=== PATIENT | male | born 1975 ===

== ENCOUNTER 2020-04-30 17:30 | Outpatient (CLI) | payer SELFPAY ==
[2020-05-01 08:35] LABS: Basophils % 0.5 %; Eosinophils # 0.1 10^3/uL (0.0-0.8); Eosinophils % 1.5 %; Hematocrit 45.8 % (42.0-52.0); Hemoglobin 15.5 g/dL (11.7-16.6); Lymphocytes # 2.5 10^3/uL (0.8-4.8); Lymphocytes % 37.2 %; Mean Corpuscular HGB Conc 33.8 g/dL (30.0-36.0); Mean Corpuscular Hemoglobin 28.3 pg (28.0-34.0); Mean Corpuscular Volume 83.6 fL (80-94); Mean Platelet Volume 10.1 fL (7.4-10.4); Monocytes # 0.4 10^3/uL (0.2-0.9); Monocytes % 5.6 %; Neutrophils # 3.65 10^3/uL (1.8-7.7); Neutrophils % 54.9 %; Nucleated Red Blood Cells % 0 %; Platelet Count 185 10^3/cmm (130-400); Red Blood Count 5.48 10^6/uL (4.1-5.3); Red Cell Distribution Width 12.8 % (12.1-15.1); White Blood Count 6.6 10^3/uL (4.0-10.0)
[2020-05-01 09:06] LABS: 25 Hydroxy Vitamin D 11 ng/mL (30-100); Prostate Specific Antigen Scr 0.51 ng/mL (0-4); Thyroid Stimulating Hormone 2.67 uIU/mL (0.27-4.20)
[2020-05-01 09:17] LABS: Alanine Aminotransferase 35 U/L (0-41); Albumin Level 4.5 g/dL (3.5-5.2); Alkaline Phosphatase 90 IU/L (40-130); Anion Gap 15.1 (5-19); Aspartate Amino Transferase 18 U/L (0-40); Blood Urea Nitrogen 13 mg/dL (6-20); Calcium 9.2 mg/dL (8.5-10.5); Carbon Dioxide 28 mmol/L (22-29); Chloride 105 mmol/L (98-107); Chol HDL Ratio 4.23 mg/dL (1.0-5.00); Cholesterol 186 mg/dL (0-200); Globulin 2.7 g/dL (1.3-4.6); Glomerular Filtration Rate 105.5 mL/min (90-130); Glucose 103 mg/dL (65-115); HDL Cholesterol 44 mg/dL (60-100); LDL Cholesterol Calculated 117 mg/dL (50-129); LDL HDL Ratio 2.66 RATIO (0.00-3.22); Osmolality Calculated 298 mOsm/kg (285-295); Potassium 4.1 mmol/L (3.5-5.1); Sodium 144 mmol/L (136-145); Total Bilirubin 0.7 mg/dL (0.15-1.2); Total Protein 7.2 g/dL (6.6-8.7); Triglycerides 127 mg/dL (0-150)
[2020-05-01 09:21] LABS: HF Add Manual Diff No
[2020-05-01 09:27] LABS: Estmated Average Glucose 108; Hemoglobin A1C 5.4 % (4.0-6.0)
== END 2020-04-30 17:31 | disposition home or self-care (01) ==
PROVIDERS: Visit Provider Dermatology
DX: Z01.89 Encounter for other specified special examinations (principal)
CPT/HCPCS: 85025

== ENCOUNTER → 2021-08-14 13:13 | Outpatient (BNVA) | payer SELFPAY | PROVIDERS: Visit Provider Internal Medicine | DX: E87.6 Hypokalemia (principal); M10.9 Gout, unspecified | CPT/HCPCS: 80048; 84550; 86140 ==